=== PATIENT | female | born 1990 | race African-American/Black ===

== ENCOUNTER 2022-08-07 16:37 | Day surgery (SDC) | payer OTHER | END 2022-08-07 17:35 | disposition home or self-care (01) | LOC: CSHSDC 16:37 | PROVIDERS: ATTEND Obstetrics & Gynecology | DX: O36.0190 Maternal care for anti-D [Rh] antibodies, unspecified trimester, not applicable or unspecified (principal); Z67.21 Type B blood, Rh negative ==

== ENCOUNTER 2022-09-13 20:29 | Day surgery (SDC) | payer OTHER | END 2022-09-13 21:55 | disposition home or self-care (01) | LOC: CSHLD/OP 20:29 | PROVIDERS: ATTEND Obstetrics & Gynecology | PROC: 10D07Z8 Extraction of Products of Conception, Other, Via Natural or Artificial Opening (ICD-10-PCS; principal; 2022-09-13) | DX: O80 Encounter for full-term uncomplicated delivery (principal); Z37.0 Single live birth | CPT/HCPCS: 99283 ==

== ENCOUNTER 2022-09-14 11:21 | Inpatient (IN) | payer OTHER ==
[2022-09-14] MEDS ORDERED: Lidocaine 1% (PF) 30 ML VIAL ONE (11:40)
[2022-09-14] MEDS ORDERED: NS w/ Oxytocin 30 units 500 ML ONE (11:40)
[2022-09-14] MEDS ORDERED: Oxytocin 10 UNITS/ML VIAL ONE (11:43)
[2022-09-14] MEDS ORDERED: Bisacodyl 10 MG SUPP PR PRN (12:10)
[2022-09-14] MEDS ORDERED: diphenhydrAMINE 25 MG CAP PO PRN (12:10)
[2022-09-14] MEDS ORDERED: Varicella virus, LIVE 0.5 ML VIAL SC ONE (12:10)
[2022-09-14] MEDS ORDERED: Lanolin Ointment 7 GM TUBE TOP PRN (12:10)
[2022-09-14] MEDS ORDERED: Benzocaine-Menthol 82.5 ML CAN TOP PRN (12:10)
[2022-09-14] MEDS ORDERED: Promethazine HCl 25 MG/ML VIAL IM PRN (12:10)
[2022-09-14] MEDS ORDERED: Boostrix 0.5 ML (Tdap) VIAL (>/=7 yrs of age) IM ONE (12:10)
[2022-09-14] MEDS ORDERED: Ondansetron PF 4 MG/2 ML Vial IVP PRN (12:10)
[2022-09-14] MEDS ORDERED: HYDROcodone/Acetaminophen 5/325 mg Tablet PO PRN ×2 (12:10)
[2022-09-14] MEDS ORDERED: Preparation H Ointment 28 GM TUBE PR PRN (12:10)
[2022-09-14] MEDS ORDERED: Measles/Mumps/Rubella 10 MCG/0.5 ML VIAL SC ONE (12:10)
[2022-09-14] MEDS ORDERED: Methylergonovine 0.2 MG/ML VIAL IM PRN (12:10)
[2022-09-14] MEDS ORDERED: Misoprostol 200 MCG TAB VAG PRN (12:10)
[2022-09-14] MEDS ORDERED: hydrALAZINE 20 MG/ML VIAL SLOW IVP PRN (12:10)
[2022-09-14] MEDS ORDERED: Zolpidem Tartrate 5 MG TAB PO PRN (12:10)
[2022-09-14] MEDS ORDERED: Milk Of Magnesia 30 ML UDCUP PO PRN (12:10)
[2022-09-14] MEDS ORDERED: NS w/ Oxytocin 30 units 500 ML IV SCH (12:15)
[2022-09-14 12:45] VITALS: BMI 26.6
[2022-09-14] MEDS: Ibuprofen 800 MG TAB PO SCH ×2 (12:51→21:16)
[2022-09-14] MEDS ORDERED: Oxytocin 10 UNITS/ML VIAL IM SCH (13:30)
[2022-09-14 15:27] LABS: Mean Corpuscular HGB CONC 31.7 g/dL (32.0-36.0); Mean Corpuscular Hemoglobin 26.6 pg (27.0-33.0); Mean Platelet Volume 11.3 fl (7.4-10.4); Platelet Count 131 10x3/uL (150-450); RBC Distribution Width 14.6 % (11.5-14.5); Red Blood Cell (RBC) Count 4.51 10x6/uL (3.90-5.03); White Blood Cell (WBC) Count 9.2 10x3/uL (3.5-10.5)
[2022-09-14] MEDS: Ferrous Sulfate 325 MG TAB PO SCH (15:44)
[2022-09-14] MEDS: Docusate 100 MG CAP PO SCH (21:16)
[2022-09-15 05:00] LABS: Hemoglobin 11.7 g/dL (12.0-15.5); Mean Corpuscular Hemoglobin 27.2 pg (27.0-33.0); Mean Corpuscular Volume 82.6 fl (81.6-98.3); Mean Platelet Volume 12.4 fl (7.4-10.4); Platelet Count 148 10x3/uL (150-450); RBC Distribution Width 14.6 % (11.5-14.5); White Blood Cell (WBC) Count 9.7 10x3/uL (3.5-10.5)
[2022-09-15] MEDS: Ibuprofen 800 MG TAB PO SCH ×2 (05:52→13:36)
[2022-09-15] MEDS ORDERED: Prenatal Vitamin 1 TAB PO SCH (09:00)
[2022-09-15 11:09] VITALS: BP 113/71; TEMP 97.9
[2022-09-15] MEDS: Ferrous Sulfate 325 MG TAB PO SCH (12:24)
[2022-09-15] MEDS: Docusate 100 MG CAP PO SCH (13:37)
== END 2022-09-15 15:45 | disposition home or self-care (01) | DRG 807 ==
LOC: CSHLD/OP 11:21 → CSHLD 12:06 → CSHPP 14:20
PROVIDERS: ADMIT Obstetrics & Gynecology; ATTEND Obstetrics & Gynecology
PROC: 10E0XZZ Delivery of Products of Conception, External Approach (ICD-10-PCS; principal; 2022-09-14)
DX: O80 Encounter for full-term uncomplicated delivery (principal); Z37.0 Single live birth; Z3A.39 39 weeks gestation of pregnancy
CPT/HCPCS: 36415; 85027; 85461; 90384; 96372; 99283; 99285; J2001; J2590